=== PATIENT | male | born 1965 | race African-American/Black ===

== ENCOUNTER 2018-07-16 15:23 | Emergency (ER) | payer OTHER, SELFPAY | END 2018-07-16 16:38 | disposition home or self-care (01) | LOC: ERS 15:23 | DX: S16.1XXA Strain of muscle, fascia and tendon at neck level, initial encounter (principal); S39.012A Strain of muscle, fascia and tendon of lower back, initial encounter; I10 Essential (primary) hypertension; F17.200 Nicotine dependence, unspecified, uncomplicated; V49.9XXA Car occupant (driver) (passenger) injured in unspecified traffic accident, initial encounter | CPT/HCPCS: 99283 ==

== ENCOUNTER 2021-04-04 13:39 | Emergency (ER) | payer OTHER | END 2021-04-04 14:08 | disposition home or self-care (01) | LOC: ERS 13:39 | DX: I10 Essential (primary) hypertension (principal); F17.220 Nicotine dependence, chewing tobacco, uncomplicated; F17.200 Nicotine dependence, unspecified, uncomplicated | CPT/HCPCS: 99283 ==

== ENCOUNTER 2022-09-07 09:08 | Emergency (ER) | payer OTHER, SELFPAY ==
[2022-09-07 10:37] LABS: Bilirubin Negative (Negative); Blood, Urine Trace (Negative); CAUTI Indications for Culture Dysuria,urgency,freq; Clarity Clear (Clear); Glucose, Urine (Dipstick) Normal (Negative); Ketone, Urine Negative (Negative); Leukocyte 500 Leu/uL (Negative); Nitrite Negative (Negative); Protein, Urine (Dipstick) Negative (Neg-Trace); Squamous Epithelial None Seen HPF (0-3); Urobilinogen Normal mg/dL (Less than 2); pH, Urine 5.5 (5.0-9.0)
[2022-09-07 10:45] LABS: Bacteria/HPF Rare-Few HPF (None Seen)
[2022-09-07 10:48] LABS: Urine Culture Reflex Yes Yes
[2022-09-07] MEDS ORDERED: Azithromycin 250 MG TAB ONE (10:59)
[2022-09-07] MEDS ORDERED: cefTRIAXone (ROCEPHIN) 1 GM VIAL ONE (10:59)
[2022-09-07 15:44] LABS: Chlam.trachomatis by PCR,Urine Not Detected (NotDetected); GC N.gonorrhoeae PCR,UrineVOID DETECTED (NotDetected)
== END 2022-09-07 11:18 | disposition home or self-care (01) ==
LOC: ERS 09:08
DX: N34.2 Other urethritis (principal); F17.220 Nicotine dependence, chewing tobacco, uncomplicated; I10 Essential (primary) hypertension
CPT/HCPCS: 81001; 87086; 87491; 87591; 96372; 99283; J0696